=== PATIENT | female | born 1980 | race Hispanic/Latino ===

== ENCOUNTER 2016-10-18 11:24 | Day surgery (SDC) | payer OTHER ==
[2016-10-18 11:38] VITALS: BMI 29.2
[2016-10-18 11:56] LABS: BASO # 0.1 K/uL (0.0-0.2); BASO % 0.8 % (0.0-2.0); EOS # 0.1 K/uL (0.0-0.7); EOS % 1.3 % (0.0-4.0); HEMATOCRIT 38.6 % (34.0-47.0); LYMPH # 2.5 K/uL (1.0-4.3); LYMPH % 33.5 % (20.0-40.0); MEAN CELL VOLUME 90.1 fl (81.0-99.0); MEAN CORPUSCULAR HEMOGLOBIN 30.6 pg (27.0-31.0); MEAN CORPUSCULAR HGB CONC 33.9 g/dL (33.0-37.0); MEAN PLATELET VOLUME 7.7 fl (7.2-11.7); MONO # 0.6 K/uL (0.0-0.8); MONO % 8.1 % (0.0-10.0); NEUT # 4.2 K/uL (1.8-7.0); NEUT % 56.3 % (50.0-75.0); RED CELL DISTRIBUTION WIDTH 15.8 % (11.5-14.5); WHITE BLOOD COUNT 7.5 K/uL (4.8-10.8)
[2016-10-18] MEDS ORDERED: Bupivacaine 0.5% Inj(30mL) ONE (14:19)
[2016-10-18] MEDS ORDERED: Propofol 10 mg/ml Inj (20 ML) ONE ×2 (14:20→16:50)
[2016-10-18] MEDS ORDERED: Rocuronium 10 mg/ml (5 ml) ONE ×2 (14:21→15:59)
[2016-10-18] MEDS ORDERED: Midazolam 2 MG/2 ML VIAL ONE ×2 (14:21→17:54)
[2016-10-18] MEDS ORDERED: ePHEDrine 50 mg/ml Inj ONE (14:21)
[2016-10-18] MEDS ORDERED: Succinylcholine 200 mg/10 ml Inj IV ONE (14:22)
--- NOTE | 2016-10-18 14:51 | CP.SDSHP ---
Same Day Surgery H & P - History Proposed Procedure: Robotic endometriosis removal, possible appendectomy Pre-Op Diagnosis: pelvic pain , endometriosis - Previous Medical/Surgical History Endocrine/Metabolic: Thyroid Disease - Allergies Allergies: Allergies No Known Allergies Allergy (Verified 09/14/15 12:37) - Physical Exam General Appearance: NAD Vital Signs: Vital Signs 10/18/16 10/18/16 12:12 12:20 Temperature 99.1 F Pulse Rate 75 75 Respiratory 20 Rate Blood Pressure 106/71 O2 Sat by Pulse 100 Oximetry Neuro: WNL Heart: WNL Lungs: WNL GI: WNL - {Optional Preform as Required} Breast: WNL Abdomen: WNL Integument: WNL ENGRAVINGS POLISHER: WNL - Impression Impression: Endometriosis - Date & Time Date: 10/18/16 Time: 14:51 Short Stay Discharge - Short Stay Discharge Admitting Diagnosis/Reason for Visit: N80.0 Disposition: HOME/ ROUTINE Referrals: Tony Rayo [Primary Care Provider] - Follow-up: -f/u with Dr. Rayo in 1-2 weeks. -No sex for 2 weeks -No heavy lifting for 1 month -resume regular diet -Pain med as needed Instructions: Endometriosis (DC)
[2016-10-18] MEDS ORDERED: Lactated Ringer's 1,000 ML IV ONE ×2 (15:15→15:40)
[2016-10-18] MEDS ORDERED: Bupivacaine 0.5% 50 ML IJ ONE ×2 (16:00)
[2016-10-18] MEDS ORDERED: Neostigmine Methylsulfate 3mg/3ml Syringe IV ONE ×2 (16:50→17:02)
[2016-10-18] MEDS: HYDROmorphone 0.5 mg/0.5 ml ISec IVP PRN ×2 (17:25→17:35)
[2016-10-18] MEDS ORDERED: Oxycodone/Acetaminophen 5/325 mg Tab PO PRN (17:31)
--- NOTE | 2016-10-18 17:31 | PCM.SURG1 ---
Surgeon's Initial Post Op Note - Surgeon's Notes Surgeon: Dr. Rayo Balance Bridge Inspector: Nancy Michel PGY2, Akira LÓPEZ Type of Anesthesia: General Endo Pre-Operative Diagnosis: Endometriosis Operative Findings: endometriosis, Ovarian cyst/endometrioma, adhesions Post-Operative Diagnosis: endometriosis, ovarian cystadenoma v ovarian endometrioma Operation Performed: robotic destruction of endometrioma , ovarian cyst removal Specimen/Specimens Removed: ovarian cyst/ endometrioma Estimated Blood Loss: EBL {In ML}: 20 Blood Products Given: N/A Drains Used: No Drains Post-Op Condition: Good Date of Surgery/Procedure: 10/18/16 Time of Surgery/Procedure: 17:31
[2016-10-18] MEDS ORDERED: Lactated Ringer's 1,000 ML IV SCH (17:32)
[2016-10-18] MEDS ORDERED: HYDROmorphone 0.5 mg/0.5 ml ISec ONE ×2 (17:33→17:43)
[2016-10-18] MEDS ORDERED: Midazolam 2 MG/2 ML VIAL IV ONE ×2 (17:55)
[2016-10-18 23:26] VITALS: RESP 17; O2SAT 95
[2016-10-18 23:27] VITALS: BP 114/72; PULSE 86; TEMP 98.2
--- NOTE | 2016-11-12 12:43 | OP ---
PROCEDURE DATE: 10/18/2016 PREOPERATIVE DIAGNOSES: Pelvic pain, dysmenorrhea, dyspareunia, right ovarian endometrioma, rule out endometriosis. 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 PROCEDURE PERFORMED: Cystoscopy with placement of ureteral stents and injection of IC green dye bilateral in the ureters, diagnostic hysteroscopy, laparoscopy operative robotic da nena , excision of endometriosis , bilateral ureterolysis and right ovarian cystectomy for endometrioma. SURGEON: Tony Rayo MD. DEEP TISSUE MASSAGE THERAPIST: Lamin Rothman MD and Susana Champion PA-C. ESTIMATED BLOOD LOSS: Minimal. COMPLICATIONS: None. SAMPLES: Left periureteral endometriosis, left posterior cervical endometriosis and right ovarian endometrioma. INDICATION FOR PROCEDURE: This patient is a 36-year-old with a history of pelvic pain, dysmenorrhea, dyspareunia and a persistent ovarian cyst. She had a prior surgery for endometriosis, so she had a known diagnosis. She had persistent symptoms that was resistant to medical treatments. Prior to the surgery, she was counseled wit regards to risk and benefits of the procedure. In the likelihood of the procedure, we will identify the cause of the problem. The likelihood of successful outcome and alternative modality, treatment, and potential risks were discussed. The patient was taken to the OR and signed the consent.Given the risk of ureteral injury due to the surgery , ureteral stenting with injection of fluorescent dye is an essential element of this operation . DESCRIPTION OF PROCEDURE: After adequate anesthesia was obtained, the patient was placed in the dorsal supine position. At this point, after adequate adding of all areas prone to pressure was performed, the patient was placed in the dorsal lithotomy position. She was prepped and draped. The surgeon gown and gloved. A time-out was performed and at this point, the procedure was initiated. The first part of procedure involved the cystoscopy, a cystoscope was inserted into the bladder and the bladder was visualized entirely. Garcia cystoscopy was performed. At this point, both ureteral orifices were identified which were in a normal anatomical position. The left ureter was catheterized with a Khmer open-ended urethral catheter. A solution of ICG was then injected for a total of 4 mL once the catheter was in the distal ureter. The ureteral catheter was then removed. Attention was paid to the right ureteral catheter, at which point a ureteral catheter was advanced to the right distal ureter. An additional 4 mL of ICD green were injected in to the right ureter. The ureteral catheter was then removed. The bladder was inspected and noted to be free of tumor, stones, or bleeding. The cystoscope was removed and a 16-Khmer Machuca catheter was placed. The rationale for the catheterization and injection of dye was the complexity of the case requiring perfect visualization of the ureter which are much more prone to ureteral injury in patients with endometriosis. At this point, attention was in the vaginal area where a speculum was placed in the vagina. The anterior lip of the cervix was grasped. The uterus was dilated and the hysteroscope was inserted into the uterine cavity, which did not contain any fibroids or polys and was completely normal. At this point, after placing a Valtchev manipulator in the uterus, attention was on the abdomen. An incision was made below the umbilicus and standard open laparoscopy technique was implemented. At this point, a trocar was placed. The abdomen was insufflated and under direct visualization, 3 additional trocars were inserted; right upper quadrant, left upper quadrant, and left mid quadrant. At this point, the da Nena Xi robot was brought into the field. It was docked and it was caliber. At this point, the findings were as follow. There was evidence of endometriosis in both the pelvic area and bilaterally the right and left sidewall. The right ovary was adhering for right pelvic sidewall. It was enlarged and he contained a large cyst suggestive of endometriosis. The first step of the procedure involved excision of endometriosis on the right pelvic side wall. The peritoneum overlying the left ureter which was identified utilizing fluorescence technology was incised and a progressive dissection was performed lateralizing the ureter in a [id number] fashion all the way from the pelvic brim to the uterine vessel. A progressive dissection was performed and near peritoneum containing endometriosis was excised in a single sample. At this point, the attention was on the right hand side where again the ureter was identified utilizing fluorescence and again the retroperitoneum was entered and the space and with great care to avoid the vessel, the ureter was identified and progressively dissected and lateralized and a large mass containing endometriosis was dissected completely and sent to pathology. The ovary was elevated and he was entered and a chocolate like fluid came out and he was aspirated. The edge of the endometriosis cyst was identified and it was resected in a [id number] fashion, peeled off from the ovary itself and sent to pathology. Minimal coagulation was used to control small bleeders on the underside of the ovary. At this point, the posterior Cul-de-sac was also examined and additional areas of endometriosis were excised. Once this was done, any small bleeders were bipolar coagulated. The rest of the pelvis was examined and appeared to be normal with no additional areas of endometriosis including the upper abdomen. The pelvis was irrigated. The da Nena robot was undocked. The instruments were removed. The abdomen was insufflated. The fascia was closed with 0 PDS and 4-0 Monocryl for the skin. At the end of the procedure, all tapes and instrument counts were correct. The patient tolerated the procedure well and was taken to the recovery in excellent condition. Tony Rayo MD MTDD
== END 2016-10-19 01:10 | disposition home or self-care (01) ==
LOC: H.OPSURG 11:24 → H.MEDSURG1 20:35 → H.OPSURG 10-19 01:10
PROVIDERS: ATTEND Obstetrics & Gynecology Reproductive Endocrinology
DX: N80.0 Endometriosis of uterus (principal); G47.33 Obstructive sleep apnea (adult) (pediatric); R10.2 Pelvic and perineal pain
CPT/HCPCS: 36415; 52005; 58662; 85025; 86850; 86900; 88305; C1729; J0330; J0690; J1170; J1885; J2001; J2175; J2250; J2405; J2704; J2710; J3010; J7030; J7040; J7120

== ENCOUNTER 2017-07-04 09:55 | Day surgery (SDC) | payer OTHER ==
[2017-07-04 10:51] LABS: HEMOGLOBIN 12.8 g/dL (12.0-16.0); MEAN CELL VOLUME 90.7 fl (81.0-99.0); MEAN CORPUSCULAR HEMOGLOBIN 30.5 pg (27.0-31.0); MEAN CORPUSCULAR HGB CONC 33.6 g/dL (33.0-37.0); RBC 4.21 Mil/uL (3.80-5.20); WHITE BLOOD COUNT 7.4 K/uL (4.8-10.8)
[2017-07-04] MEDS ORDERED: ePHEDrine 50 mg/ml Inj ONE (11:57)
[2017-07-04] MEDS ORDERED: Propofol 10 mg/ml Inj (20 ML) ONE (11:57)
[2017-07-04] MEDS ORDERED: Lidocaine 4% (Laryng-O-Jet) Kit MM ONE (11:58)
[2017-07-04] MEDS ORDERED: Succinylcholine 200 mg/10 ml Inj IV ONE (11:58)
[2017-07-04] MEDS ORDERED: Rocuronium 10 mg/ml (5 ml) ONE (11:58)
[2017-07-04] MEDS ORDERED: Midazolam 2 MG/2 ML VIAL ONE (11:58)
[2017-07-04] MEDS ORDERED: Bupivacaine 0.5% Inj(30mL) ONE (12:29)
[2017-07-04] MEDS ORDERED: Lactated Ringer's 1,000 ML IV ONE ×3 (12:50→16:14)
[2017-07-04] MEDS ORDERED: Desflurane Inhalation Anesthetic Liq (240 ml) ONE (13:40)
[2017-07-04] MEDS ORDERED: Neostigmine 1:1000 (1 mg/ml) Inj ONE (14:39)
[2017-07-04] MEDS ORDERED: DiphenhydrAMINE 50 mg/ml Inj IVP PRN (15:16)
[2017-07-04] MEDS ORDERED: Oxycodone/Acetaminophen 5/325 mg Tab PO PRN ×2 (15:23)
[2017-07-04 15:28] VITALS: RESP 18
[2017-07-04] MEDS ORDERED: Lactated Ringer's 1,000 ML IV SCH (15:30)
[2017-07-04] MEDS ORDERED: Morphine 4 MG/ML VIAL ONE ×3 (15:35→15:59)
[2017-07-04] MEDS ORDERED: Oxycodone/Acetaminophen 5/325 mg Tab PO ONE (17:45)
[2017-07-04 17:58] VITALS: TEMP 98.2
[2017-07-04 19:42] VITALS: BP 111/61; PULSE 107; O2SAT 95
--- NOTE | 2017-07-05 16:16 | OP ---
PROCEDURE DATE: 07/04/2017 PREOPERATIVE DIAGNOSES: Pelvic pain, rule out recurrent endometriosis. POSTOPERATIVE DIAGNOSES: Pelvic pain, rule out recurrent endometriosis. PROCEDURE PERFORMED: Cystoscopy with bilateral ureteral catheterization and injection of dye, robotic laparoscopy, excision of endometriosis, and bilateral ureterolysis. SURGEON: Tony Rayo MD [facility] NURSE: Lamin Rothman MD TYPE OF ANESTHESIA: General endotracheal. ANESTHESIA ADMINISTERED BY: Laura Drummond MD COMPLICATIONS: None. SAMPLES: Multiple samples sent to Pathology. INDICATIONS FOR THE PROCEDURE: The patient is a 36-year-old female with recurrent symptoms from endometriosis. She had known endometriosis and persistant symptoms, she was counseled with regards to the risks and benefits of the procedure and taken to the OR and signed the consent. DESCRIPTION OF PROCEDURE: After the patient was placed in a dorsal lithotomy position with extreme care to place her every area under adequate padding and not hyperextended or hyperflexed her hips, the surgeon was gowned and gloved and a time out was taken according to the hospital policy. At this point, a cystoscope was inserted directly into the bladder under direct visualization. The bladder appeared to be normal without any lesions or masses. The left ureter was catheterized all the way to the distal ureter and 5-mL were injected, utilizing a 5-Bengali catheter, the contralateral ureter was then also catheterized all the way to the distal ureter injecting 5 mL of IC-Green. At this point, the cystoscope was removed and the Machuca was placed into the bladder. At this point, a speculum was placed in the vagina. The anterior lip of the cervix was grasped. The cervix was gently dilated. Hysteroscope was inserted into the uterine cavity. The cavity appeared to be polypoid in appearance, therefore, a gentle D and C was performed. Samples were sent to Pathology. At this point, attention was in the abdomen where after regowning and regloving, an open laparoscopy was performed utilizing standard procedure where making an incision to the skin, carrying it all the way down to the fascia and entering the peritoneum in a blunt fashion. The catheter was then inserted and the abdomen insufflated. Under direct visualization, three additional ports were inserted, left upper quadrant, left mid quadrant, and right upper quadrant. At this point, da Nena Xi robot was docked. The upper abdomen was visualized where it was noted to have no lesions on the diaphragm. The liver was appeared to be normal. The uterus appeared to be enlarged and somewhat adenomyotic in nature. There appeared to be areas of hyperemic and thickening in the cul-de-sac, suggestive of endometriosis. The cul-da-sac appeared to be quite small due to the patient's pelvic shape , therefore, it was a quite difficult laborious dissection. Attention was first in the left hand side where after entering the retroperitoneum, the ureter was identified utilizing the florescence and progressive dissection was performed, starting on the upper brim of the pelvis all the way to the uterosacral area. The multiple samples were sent to Pathology. The rectum was lateralized and the cul-de-sac was then excised, starting from the top of the cervix all the way down and also to the left. Attention was then on the right hand side where similarly to the ureter was identified. The retroperitoneum was entered and a full dissection was performed all the way from top of the pelvis, all the way down to the uterosacral ligaments continuing all the way down in to the right cul-de-sac. Throughout this process, the rectum was preserved from any lesions or thermal injury. At this point, both ovaries were examined, appeared to be in good condition. There were two very small areas of endometriosis implant on the right ovary, which were extremely small and were ablated. At this point, the plasma energy helium device was used to ablate the inflammatory areas that did not appear to contain endometriosis. At this point, it was checked for hemostasis and appeared to be excellent. The da Nena robot was undocked. The instruments were removed and the abdomen desufflated. The incision was closed in layers with 0 PDS for the fascia and 4-0 Monocryl for the skin. At the end of the procedure, all tapes and instruments counts were correct. The patient tolerated the procedure very well and was taken to recovery room in excellent condition. Tony Rayo MD [facility]il
== END 2017-07-04 20:10 | disposition home or self-care (01) ==
LOC: H.OPSURG 09:55
PROVIDERS: ATTEND Obstetrics & Gynecology Reproductive Endocrinology
DX: R10.2 Pelvic and perineal pain (principal); N80.1 Endometriosis of ovary
CPT/HCPCS: 36415; 58662; 85027; 86850; 86900; 88305; C1729; J0330; J0690; J2001; J2250; J2270; J2704; J2710; J3010; J7030; J7040; J7120